=== PATIENT | male | born 1975 | race Caucasian/White ===

== ENCOUNTER 2022-11-06 22:07 | Emergency (ER) | payer MEDICAID ==
[2022-11-06 22:33] VITALS: BP_SYST 157
--- NOTE | 2022-11-06 23:07 | NUR ---
Patient to ER bed 07 to gown for evaluation. Side rails up. Report given to SANDY Kern
--- NOTE | 2022-11-06 23:17 | NUR ---
PT BIB FROM HOME, AMBULATED TO BED 7. PT A&Ox4, ABLE TO MAKE NEEDS KNOWN. PT IS A [place] SPEAKER. PT C/O RIGHT KNEE PAIN x15 DAYS. PT STATES HE WALKING AND STEPPED A ROCK AND LEG WENT SIDEWAYS. PT RATES PAIN 9/10. PT DENIES HEAD INJURY. PT STATES PAIN WHEN BENDING KNEE. PT STATE TAKING 400MG MOTRIN ON SUNDAY AND HAS NOT TAKEN MEDS SINCE. SAFETY PRECAUTIONS IN PLACE.
--- NOTE | 2022-11-06 23:33 | NUR ---
ER Dr. NELSON at bedside examining patient.
[2022-11-06] MEDS ORDERED: IBUP-1971 PO (23:45)
[2022-11-06] MEDS ORDERED: HYDR-3917 PO ×3 (23:45→23:49)
[2022-11-06 23:59] VITALS: BP_SYST 155
--- NOTE | 2022-11-06 23:59 | NUR ---
Patient given written and verbal discharge instructions and verbalizes understanding. ER DR NELSON discussed with patient the results and treatment provided. Patient in stable condition. ID arm band removed. Rx of MOTRIN given. Patient educated on pain management and to follow up with PMD. Pain Scale 2/10. Opportunity for questions provided and answered. Medication side effect fact sheet provided.
== END 2022-11-06 23:59 | disposition home or self-care (01) ==
LOC: SED 22:07
DX: M25.561 Pain in right knee (principal); I10 Essential (primary) hypertension; Z79.899 Other long term (current) drug therapy
CPT/HCPCS: 73564; 99283